=== PATIENT | male | born 1995 | race Caucasian/White ===

== ENCOUNTER 2021-10-15 07:00 | Emergency (ER) | payer MEDICAID ==
[~2021-10-15] VITALS: Ht 172.7 cm; Wt 74.0 kg
[2021-10-15] MEDS ORDERED: ACETAMINOPHEN 325MG TABLET PO ONE (07:45)
[2021-10-15 08:01] VITALS: BP 115/71
[2021-10-15] MEDS ORDERED: TOPUD PO (09:29)
== END 2021-10-15 09:41 | disposition home or self-care (01) ==
LOC: ER 07:34
DX: M25.532 Pain in left wrist (principal); M25.551 Pain in right hip
CPT/HCPCS: 73100; 73502; 99284; Z7610